=== PATIENT | female | born 1945 | race Two or more races ===

== ENCOUNTER 2016-08-28 11:45 | Emergency (ER) | payer MEDICARE, MEDICAID ==
[2016-08-28 10:51] LABS: BASO % 0.2 % (0-2); EOS % 0.4 % (0-7); EOSINOPHIL ABSOLUTE COUNT 0.1 tho/cmm (0.0-0.7); HCT-HEMATOCRIT 36.5 % (34.0-49.0); HGB-HEMOGLOBIN 12.2 gm/dl (12.0-15.5); IMMATURE GRANULOCYTES ABSOLUTE 0.05 tho/cmm (0-0.03); IMMATURE GRANULOCYTES PERCENT 0.4 % (0-0.3); LYMPH % 7.4 % (20-45); LYMPH ABSOLUTE COUNT 0.9 tho/cmm (0.8-4.5); MCH (MEAN CORPUSCULAR HGB) 28.5 pg (28.0-32.0); MCHC MEAN CORPUSCULAR HGB CONC 33.4 % (32.0-36.0); MCV (MEAN CELL VOLUME) 85.3 fl (82.0-96.0); MEAN PLATELET VOLUME 9.7 cmc (9.4-12.4); MONO % 8.2 % (0-12); NEUTROPHIL ABSOLUTE COUNT 10.6 tho/cmm (1.6-8.0); NEUTROPHIL-AUTOMATED 10.6 tho/cmm (1.6-8.0); NEUTROPHILS % 83.4 % (40-80); PLATELET COUNT 513 tho/cmm (150-450); RED BLOOD COUNT 4.28 mil/cmm (4.00-5.20); RED CELL DISTRIBUTION WIDTH 16.4 % (12.4-16.4); WHITE BLOOD COUNT 12.7 tho/cmm (4.0-10.0)
[2016-08-28 11:05] LABS: ALB/GLOB RATIO 0.5 (0.8-2.0); ALBUMIN 2.8 g/dl (3.5-5.0); ALKALINE PHOSPHATASE 80 U/L (33-138); ALT/SGPT 12 U/L (12-78); ANION GAP 16 mmol/L (0-20); AST/SGOT 21 U/L (10-40); BILIRUBIN,TOTAL 0.4 mg/dl (0-1.5); BLOOD UREA NITROGEN 40 mg/dl (6-24); CALCIUM 9.2 mg/dl (8.5-10.5); CARBON DIOXIDE-VENOUS 24 mmol/L (22-32); CHLORIDE 98 mmol/l (96-110); CREATININE 4.91 mg/dl (0.50-1.10); GLUCOSE 113 mg/dL (70-110); LIPASE 709 U/L (73-393); SODIUM 134 mmol/L (135-145); eGFR VALUE FOR BLACK 10 mL/Min
[~2016-08-28 11:45] MED LIST: ADULT ASPIRIN81 MG; AMLODIPINE BESY10 M1 PO; ASPIRIN81 M1 PO; AVANDIA4 MG; COLACE100 M1 PO; COREG25 M1 PO; COZAAR100 M1 PO; ELIQUIS5 M1 PO; FERRIC CITRATE210 MG PO; FLEXERIL10 MG PO; GLIPIZIDE5 MG; GLUCOTROL XL2.5 M1 PO; LIPITOR40 MG; LIPITOR80 M1 PO; LISINOPRIL40 MG; NORCO 5/325 TAB1 TAB PO; NORVASC10 MG; OMEPRAZOLE20 M3 PO; PLAVIX75 M1 PO; PLAVIX75 MG; TRAVATAN Z5 M1 EACH EYE; TYLENOL325 M2 PO
== END 2016-08-28 16:26 ==
LOC: EDMED 11:45
PROVIDERS: Emergency Medicine
PROC: 0S993ZZ Drainage of Right Hip Joint, Percutaneous Approach (ICD-10-PCS; principal; 2016-08-28)
DX: R19.7 Diarrhea, unspecified (principal); M25.551 Pain in right hip; E11.9 Type 2 diabetes mellitus without complications; I10 Essential (primary) hypertension
CPT/HCPCS: G8978-GP-CK; G8979-GP-CK; G8980-GP-CK; J1040